=== PATIENT | female | born 1990 | race Caucasian/White ===

== ENCOUNTER 2018-07-05 19:00 | Outpatient (REF) | payer BC, SELFPAY ==
[2018-07-05 19:35] LABS: Anion Gap 9.5 mmol/L (3-11); BUN 14 mg/dL (7-18); CO2 29.5 mmol/L (21.0-32.0); CREATININE 0.61 mg/dL (0.55-1.02); Calcium 9.3 mg/dL (8.5-10.1); Chloride 101 mmol/L (98-107); Glucose 86 mg/dL (70-100); Potassium 4.7 mmol/L (3.5-5.1); Sodium 140 mmol/L (136-145)
== END 2018-07-05 19:20 ==
LOC: NCHCN 19:00
PROVIDERS: PCP Nurse Practitioner Family; Visit Provider Nurse Practitioner Family
DX: I10 Essential (primary) hypertension (principal); N92.6 Irregular menstruation, unspecified
CPT/HCPCS: 80048

== ENCOUNTER 2019-03-09 21:23 | Outpatient (REF) | payer BC, SELFPAY ==
[2019-03-09 18:18] LABS: HCT 35.2 % (36.0-46.0); HGB 10.8 g/dL (12.0-15.5); Mean Corp. HGB Concentration 30.7 g/dL (32.0-36.0); Mean Corpuscular Hemoglobin 22.8 pg (27.0-33.0); Mean Corpuscular Volume 74.4 fL (80-95); Mean Platelet Volume 10.5 fL (8.0-11.0); Platelet Count 395 x1000/uL (130-400); RBC 4.73 m/cumm (4.00-5.20); RBC Distribution Width 16.8 % (11.7-14.6); White Blood Cell Count 12.18 k/cumm (4.4-10.8)
[2019-03-09 18:32] LABS: ALT 40 U/L (14-59); AST 19 U/L (15-37); Albumin 3.5 g/dL (3.4-5.0); Alkaline Phosphatase 113 U/L (46-116); BUN 17 mg/dL (7-18); Bilirubin, Total 0.2 mg/dL (0.2-1.0); CREATININE 0.71 mg/dL (0.55-1.02); Calcium 8.8 mg/dL (8.5-10.1); Chloride 101 mmol/L (98-107); Glucose 94 mg/dL (70-100); Potassium 3.7 mmol/L (3.5-5.1); Sodium 138 mmol/L (136-145); TSH (W/Ref FT4) 1.51 uIU/mL (0.36-3.74); Total Protein 8.5 g/dL (6.4-8.2)
[2019-03-09 19:32] LABS: Hemoglobin A1C 5.9 % (4.5-6.2)
== END 2019-03-09 21:43 ==
LOC: NCHCN 21:23
PROVIDERS: PCP Nurse Practitioner Family; Visit Provider Nurse Practitioner Family
DX: I10 Essential (primary) hypertension (principal); Z68.45 Body mass index [BMI] 70 or greater, adult
CPT/HCPCS: 80053; 85027; 83036; 84443

== ENCOUNTER 2019-03-24 01:31 | Outpatient (CLI) | payer BC, SELFPAY ==
--- NOTE | 2019-03-24 16:00 | NS.NUTBLAN_ITS ---
DESCRIPTION:? Ermelinda Dan presents for nutrition consult in preparation for bariatric surgery. Height:? 64 inches? Weight today: 467 pounds? ?BMI 80.2 Ermelinda states she has been overweight her entire life.?? She skips breakfast most days, but occasionally has instant breakfast.? She is very hungry by lunch and has peanut? butter and jelly sandwich and chips. She snacks on fruit in the afternoon, and crackers when she gets home.? She has meat and vegetables with?ubtter for supper.? She drinks up to 3 16 oz bottles water daily. She has cut back to diet pepsi occasionally. She reports her physical activity as working at work.? She wants to walk outside but it doesn't feel safe. INTERVENTION:? She wishes to have a meal plan as she states she needs to lose 25# before the surgery.? Outlined 3 meals a day with focus on satisfying hunger, including adequate protein and a variety of vegetables.? Reviewed a few principles of mindful eating including hunger/fullness and eating processed foods that have minimal ingredients; real food. Discussed ways to increase physical activity.? She has friends she could plan exercise with and maybe walk at the mall. PLAN:? Decrease portion; follow meal plan; try tracking food in [employer]; eat real food She will walk at least once a week. She will return in 1 month for 2nd follow up.
== END 2019-03-24 01:51 ==
PROVIDERS: PCP Nurse Practitioner Family; Visit Provider Dietitian, Registered
DX: E66.01 Morbid (severe) obesity due to excess calories (principal); Z68.45 Body mass index [BMI] 70 or greater, adult; Z71.3 Dietary counseling and surveillance
CPT/HCPCS: 97802

== ENCOUNTER 2019-12-01 01:57 | Outpatient (CLI) | payer BC, SELFPAY ==
[2019-12-01 10:36] LABS: Hemoglobin A1C 6.1 % (3.8-5.6)
[2019-12-01 10:38] LABS: Abs Immature Grans 0.07 10^3/uL (0.0-0.06); Absolute Basophil Count 0.04 10^3/uL (0.0-0.2); Absolute Eosinophil Count 0.17 10^3/uL (0.0-0.7); Absolute Lymphocyte Count 2.68 10^3/uL (1.2-3.4); Absolute Monocyte Count 0.63 10^3/uL (0.1-0.8); Basophils % 0.3; Eosinophils % 1.4; HCT 36.1 % (36.0-46.0); HGB 10.8 g/dL (11.2-15.7); Immature Grans % 0.6; Lymphocytes % 22.5; MCH 22.2 pg (27.0-33.0); MCHC 29.9 % (32.0-36.0); MCV 74.1 fL (80-95); MPV 9.9 fL (8.0-11.0); Monocytes % 5.3; Neutrophils % 69.9; Platelet Count 352 10^3/uL (130-400); RBC 4.87 10^6/uL (3.93-5.22); RDW 17.6 % (11.7-14.6); RDW-SD 46.5 fL; WBC 11.89 10^3/uL (4.4-10.8)
[2019-12-01 10:58] LABS: Absolute Neutrophil Count 8.31 10^3/uL (1.2-6.7)
[2019-12-01 11:12] LABS: Iron 24 ug/dL (50-170); Total Iron Binding Capacity 356 ug/dL (250-450); Transferrin Sat 7 % (15-50)
[2019-12-01 11:25] LABS: Anisocytosis 1+; Diff Comment RBC Morph Reviewed; Hypochromasia 1+; Microcytosis 2+
[2019-12-01 11:40] LABS: ALT 24 U/L (14-59); AST 14 U/L (15-37); Albumin 3.1 g/dL (3.4-5.0); Alkaline Phosphatase 107 U/L (46-116); Anion Gap 6.8 mmol/L (3-11); BUN 13 mg/dL (7-18); Bilirubin, Total 0.4 mg/dL (0.2-1.0); CO2 28.2 mmol/L (21.0-32.0); CREATININE 0.77 mg/dL (0.55-1.02); Calcium 8.8 mg/dL (8.5-10.1); Calculated LDL 70 mg/dL (<100); Chloride 101 mmol/L (98-107); Cholesterol 120 mg/dL (<200); Ferritin 14 ng/mL (8-252); Folate 12.1 ng/mL (8.6-20.0); Glucose 90 mg/dL (74-106); HDL Cholesterol 38 mg/dL (40-60); Potassium 4.4 mmol/L (3.5-5.1); Sodium 136 mmol/L (136-145); Total Protein 7.7 g/dL (6.4-8.2); Triglyceride 61 mg/dL (<150); Vitamin B12 421 pg/mL (193-986)
[2019-12-04 05:23] LABS: Vitamin D 25 Total 11.3 ng/ml (30-100)
[2019-12-04 10:17] LABS: Parathyroid Hormone,Intact 53 pg/mL (19-88)
[2019-12-05 11:19] LABS: Thiamine (Vitamin B1), WB 106 nmol/L (70-180)
== END 2019-12-01 02:17 ==
PROVIDERS: PCP Nurse Practitioner Family; Visit Provider Internal Medicine
DX: E66.01 Morbid (severe) obesity due to excess calories (principal); Z68.45 Body mass index [BMI] 70 or greater, adult
CPT/HCPCS: 36415; 80053; 80061; 82306; 82607; 82728; 82746; 83036; 83540; 83550; 83970; 84425; 85025

== ENCOUNTER 2019-12-21 01:36 | Outpatient (CLI) | payer BC, SELFPAY ==
[2019-12-21 12:10] LABS: Ferritin 15 ng/mL (8-252)
== END 2019-12-21 01:56 ==
PROVIDERS: PCP Nurse Practitioner Family; Visit Provider Nurse Practitioner
DX: M25.569 Pain in unspecified knee (principal)
CPT/HCPCS: 36415; 82728

== ENCOUNTER 2019-12-21 09:44 | Outpatient (REF) | payer BC, SELFPAY ==
[2019-12-26 07:08] LABS: Chlamydia Result Negative (Negative); GC Result Negative (Negative)
== END 2019-12-21 10:04 ==
LOC: NCHCN 09:44
PROVIDERS: PCP Nurse Practitioner Family; Visit Provider Nurse Practitioner Family
DX: N89.8 Other specified noninflammatory disorders of vagina (principal); R31.9 Hematuria, unspecified
CPT/HCPCS: 87491; 87591; 87480; 87510; 87660

== ENCOUNTER 2020-01-23 17:38 | Outpatient (REF) | payer BC, SELFPAY ==
[2020-01-26 19:21] LABS: Patient Race White; SARS-CoV-2 RNA Undetected (Undetected); SARS-CoV-2 Specimen Source Nasal
== END 2020-01-23 17:58 ==
LOC: NCHCN 17:38
PROVIDERS: PCP Nurse Practitioner Family; Visit Provider Nurse Practitioner Family
DX: J02.9 Acute pharyngitis, unspecified (principal); Z20.828 Contact with and (suspected) exposure to other viral communicable diseases
CPT/HCPCS: U0003

== ENCOUNTER 2020-05-06 18:14 | Outpatient (REF) | payer BC, SELFPAY ==
[2020-05-06 18:37] LABS: HCT 39.3 % (36.0-46.0); HGB 11.8 g/dL (11.2-15.7); MCH 23.9 pg (27.0-33.0); MCV 79.6 fL (80-95); MPV 10.9 fL (8.0-11.0); Platelet Count 340 10^3/uL (130-400); RBC 4.94 10^6/uL (3.93-5.22); RDW 18.1 % (11.7-14.6); RDW-SD 51.8 fL; WBC 11.18 10^3/uL (4.4-10.8)
[2020-05-06 19:11] LABS: ALT 45 U/L (14-59); AST 18 U/L (15-37); Albumin 3.4 g/dL (3.4-5.0); Alkaline Phosphatase 98 U/L (46-116); Anion Gap 8.6 mmol/L (3-11); BUN 14 mg/dL (7-18); Bilirubin, Total 0.4 mg/dL (0.2-1.0); CO2 27.4 mmol/L (21.0-32.0); CREATININE 0.81 mg/dL (0.55-1.02); Calcium 8.7 mg/dL (8.5-10.1); Chloride 103 mmol/L (98-107); Glucose 88 mg/dL (74-106); Potassium 4.2 mmol/L (3.5-5.1); Sodium 139 mmol/L (136-145)
[2020-05-06 19:16] LABS: Iron 28 ug/dL (50-170); Total Iron Binding Capacity 359 ug/dL (250-450); Transferrin Sat 8 % (15-50)
[2020-05-06 19:21] LABS: Hemoglobin A1C 5.8 % (<5.7)
[2020-05-06 19:31] LABS: Vitamin D 25 Total 8.5 ng/ml (30-100)
[2020-05-08 11:25] LABS: Hepatitis C Ab w Rflx HCV PCR Negative (Negative)
[2020-05-08 12:40] LABS: HIV-1/2 Ag & Ab Screen Negative (Negative)
== END 2020-05-06 18:34 ==
LOC: NCHCN 18:14
PROVIDERS: PCP Nurse Practitioner Family; Visit Provider Nurse Practitioner Family
DX: D50.9 Iron deficiency anemia, unspecified (principal); R73.03 Prediabetes; I10 Essential (primary) hypertension; Z68.45 Body mass index [BMI] 70 or greater, adult
CPT/HCPCS: 80053; 82306; 85027; 86803; 87389; 83036; 83540; 83550

== ENCOUNTER 2020-08-21 16:22 | Emergency (ER) | payer BC, SELFPAY ==
--- NOTE | 2020-08-21 | DI.CT_ITS ---
EXAM: CT ABDOMEN PELVIS W CLINICAL HISTORY: RT LOWER QUAD PAIN. TECHNIQUE: Imaging Protocol: Axial computed tomography images with coronal and sagittal reformatted images were created and reviewed CONTRAST MATERIAL: Intravenous: Omnipaque 100cc Oral: None COMPARISON: No exams were available for comparison FINDINGS: VISUALIZED LUNG BASES: No nodules nor pleural effusions evident. ABDOMEN: There is no ascites. LIVER: There are no focal hepatic lesions evident . GALLBLADDER/BILIARY: No obvious gallbladder pathology. CBD is not dilated. PANCREAS: No evidence of pancreatic mass nor dilatation of the pancreatic duct. SPLEEN: Spleen is not enlarged. No obvious intrasplenic lesions. Splenic and portal veins are paten t. ADRENALS: There are no significant adrenal masses. KIDNEYS:No cysts evident. No solid renal masses. No calculi nor hydronephrosis.. ABDOMINAL AORTA: Abdominal aorta is not enlarged. LYMPH NODES:There is no retroperitineal nor paraaortic adenopathy. ABDOMINAL WALL/GI: Small fat containing umbilical hernia. No bowel obstruction. PELVIS: GI: No evidence of appendicitis.No evidence of sigmoid diverticulitis. LYMPH NODES: There is no intrapelvic nor inguinal adenopathy. REPRODUCTIVE: There is a T-shaped IUD in the uterine canal. Uterus size is normal. There are no abn ormal adnexal findings. No free fluid. URINARY BLADDER: No calculi nor obvious masses evident OSSEOUS: No significant osseous lesions. IMPRESSION: 1. T-shaped IUD in the uterus which appears to be in satisfactory position. No abnormal adnexal find ings. No free fluid in the abdomen and pelvis. 2. Small fat containing umbilical hernia. No bowel loops therein. 3. I note that the preliminary [facility] report discusses possible thickening of the mid-distal small marvin l. I do not see this. If clinically indicated further study repeating CT scan with oral contrast wo uld be helpful with respect to sensitivity/specificity. RADIATION DOSE DELIVERED: 1,923.76mGy.cm Total DLP DATA REPOSITORY: All CT scans at this facility are submitted to the National Radiology Data Registry (NRDR) Dose Index Registry (DIR) with the [employer] (ACR). RADIATION OPTIMIZATION: All CT scans at this facility use at least one of these dose optimization te chniques: automated exposure control; mA and/or kV adjustment per patient size (includes targeted exa ms where dose is matched to clinical indication); or iterative reconstruction.
[2020-08-21 16:26] VITALS: BP 159/98; PULSE 101; RESP 16; TEMP 36.2; O2SAT 99
--- NOTE | 2020-08-21 17:04 | W.ED.GENAD ---
Discharge Plan Discharge Details Chief Complaint: FlankPain Primary Care Provider: Mathew Freire ED Provider: Stephan Newman Home Meds and New Rx's Prescriptions: No Action amlodipine 5 mg Tablet 5 mg PO DAILY RF: 0 ascorbic acid (vitamin C) [Vitamin C] 500 mg Tablet 500 mg PO DAILY RF: 0 hydrochlorothiazide 25 mg Tablet 25 mg PO DAILY RF: 0 metformin 500 mg Tablet Extended Release 24 Hr 500 mg PO BID RF: 0 loratadine 10 mg Tablet 10 mg PO DAILY RF: 0 cholecalciferol (vitamin D3) [Vitamin D3] 125 mcg (5,000 unit) Tablet 125 mcg PO DAILY RF: 0 Medical Decision Making Otherwise healthy 29-year-old female presents from home with onset earlier today of initially midline abdominal pain now primarily located in the right lower quadrant. It is worse with movement, ameliorated by rest. She had no vaginal discharge or bleeding, does not note any urinary changes. No fever, resting pulse is approximately 90-100. She is tender in the right lower quadrant on exam. Differential diagnosis includes appendicitis, UTI/pyelonephritis. Less likely ovarian torsion or cyst. IV access established, screening labs obtained patient referred for CT imaging. This reveals mild wall thickening in the mid to distal small bowel which may represent mild infectious or inflammatory enteritis. See formal report. Findings discussed with patient. She will observe a bland diet, she will return for fever, vomiting, or any other acute concerns. Lab Data Lab results reviewed: Yes I reviewed the patient's lab results. Labs: Laboratory Results - last 24 hr 08/21/20 08/21/20 08/21/20 16:45 17:25 17:25 WBC 14.06 H RBC 5.03 Hgb 12.9 Hct 40.7 MCV 80.9 MCH 25.6 L MCHC 31.7 L RDW 15.5 H Plt Count 361 MPV 10.5 Immature Gran % 0.4 Neutrophils % 76.3 Lymphocytes % 17.4 Monocytes % 4.6 Eosinophils % 0.9 Basophils % 0.4 Nucleated RBC % 0 Absolute Neutrophils 10.73 H Absolute Lymphocytes 2.45 Absolute Monocytes 0.65 Absolute Eosinophils 0.13 Absolute Basophils 0.06 Sodium 137 Potassium 3.3 L Chloride 100 Carbon Dioxide 26.3 Anion Gap 10.7 BUN 15 Creatinine 0.7 Estimated GFR/1.73 m2 >= 60.00 Glucose 157 H Calcium 9.0 Total Bilirubin 0.4 AST 15 ALT 36 Alkaline Phosphatase 111 Total Protein 8.8 H Albumin 3.4 Urine Color Yellow Urine Clarity Cloudy Urine pH 6.0 Ur Specific [place] >= 1.030 H Urine Protein Trace H Urine Ketones Negative Urine Blood Trace-intact H Urine Nitrite Negative Urine Bilirubin Negative Urine Urobilinogen 0.2 Ur Leukocyte Esterase Negative Urine RBC 0-2 Urine WBC 5-10 Ur Epithelial Cells Moderate Urine Crystals Moderate amorphous Urine Bacteria Many Urine Casts Negative Urine Mucus Negative Urine Other Negative Ur Culture Indicated? Yes Urine Glucose Negative HPI General Mode of arrival: ambulatory. Date/Time Provider Initiated Documentation: 08/21/20 16:43. Limitations to Documentation: no limitations. Information obtained by: patient. History of Present Illness 29 year old F presents to the emergency department with the chief complaint of Right lower abdominal pain, described as moderate, Quality is described as dull, and is localized to the abdomen and right. Patient reports radiation to back. Patient started experiencing this hour(s) and it has been constant. Rest improves symptom(s), Movement worsens symptoms . Patient notes denies fever/chills and nausea/vomiting. Patient did receive the following treatments prior to arrival, none Related Data Home Medications Medication Instructions Recorded Confirmed amlodipine 5 mg PO DAILY 08/21/20 08/21/20 ascorbic acid (vitamin C) [Vitamin 500 mg PO DAILY 08/21/20 08/21/20 C] cholecalciferol (vitamin D3) 125 mcg PO DAILY 08/21/20 08/21/20 [Vitamin D3] hydrochlorothiazide 25 mg PO DAILY 08/21/20 08/21/20 loratadine 10 mg PO DAILY 08/21/20 08/21/20 metformin 500 mg PO BID 08/21/20 08/21/20 Allergies Allergy/AdvReac Type Severity Reaction Status Date / Time No Known Allergies Allergy Verified 08/21/20 16:29 General Stated Complaint: FlankPain SULLY: 3 Review of Systems Narrative: 6 systems reviewed and otherwise negative. IUD present, no frequency of menstrual period. PFSH Social History Smoking/Tobacco Use Status: Never Smoking risk assessment performed?: Yes Alcohol Intake: current Alcohol Intake frequency: holidays/special occasions only Drug use: Never Substance use type: does not use Do you feel safe at home: Yes Do you feel safe in your relationship?: Yes Exam Narrative Exam Narrative: GEN: awake, alert, oriented 3. Pleasant, well groomed, interactive. HEAD: Normocephalic, atraumatic ENT: Mucous membranes moist, oropharynx unremarkable, External ear exam unremarkable EYES: PERRL, EOMI NECK: Full ROM, no JHON, no menigismus CHEST/RESP: Nontender, clear to auscultation bilateral, no wheeze/rhonchi/rales CARDIOVASCULAR: RRR, no murmur, rub loraine. 2+ Rad pulse bilateral ABDOMEN: Soft, right lower quadrant tenderness, no mass. +Bowel sounds EXT: Full ROM, no edema, no rash Neuro: Grossly normal neurologic exam, conversant, interactive. Psych: Speech fluent, thoughts congruent, affect normal Course Vital Signs Vital signs: Vital Signs Temperature 36.2 C L 08/21/20 16:26 Pulse 101 H 08/21/20 16:26 Respiratory Rate 16 08/21/20 16:26 Blood Pressure 159/98 H 08/21/20 16:26 Pulse Oximetry 99 08/21/20 16:26 Temperature 36.2 C L 08/21/20 16:26 Temperature Source Skin 08/21/20 16:26 Pulse 101 H 08/21/20 16:26 Respiratory Rate 16 08/21/20 16:26 Respiratory Effort 08/21/20 16:32 Blood Pressure 159/98 H 08/21/20 16:26 Blood Pressure Position Sitting 08/21/20 16:26 Pulse Oximetry 99 08/21/20 16:26 Oxygen Delivery Method Room Air 08/21/20 16:26 Oxygen Flow Rate 0 08/21/20 16:26 Pain Level 6 08/21/20 16:26
[2020-08-21 17:13] LABS: Bilirubin Negative (Negative); Blood Trace-intact (Negative); Clarity Cloudy (Clear); Glucose Negative (Negative); Ketones Negative (Negative); Leukocyte Esterase Negative (Negative); Nitrite Negative (Negative); Specific Gravity >= 1.030 (1.005-1.025); Urobilinogen 0.2 EU/dL (Up TO 0.2)
[2020-08-21 17:24] LABS: Bacteria Many HPF (Negative); Epithelial Cells Moderate HPF (Negative); Other Cells Negative (Negative); RBC 0-2 HPF (0-2)
[2020-08-21 17:25] LABS: C & S Indicated? Yes; Casts Negative LPF (Negative); Crystals Moderate Amorphous HPF (Negative); Mucus Negative (Negative)
[2020-08-21 17:34] LABS: Abs Immature Grans 0.06 10^3/uL (0.0-0.06); Absolute Lymphocyte Count 2.45 10^3/uL (1.2-3.4); Absolute Monocyte Count 0.65 10^3/uL (0.1-0.8); Absolute Neutrophil Count 10.73 10^3/uL (1.2-6.7); Basophils % 0.4; Eosinophils % 0.9; HCT 40.7 % (36.0-46.0); HGB 12.9 g/dL (11.2-15.7); Immature Grans % 0.4; Lymphocytes % 17.4; MCH 25.6 pg (27.0-33.0); MCHC 31.7 % (32.0-36.0); MCV 80.9 fL (80-95); MPV 10.5 fL (8.0-11.0); Monocytes % 4.6; Neutrophils % 76.3; Nucleated RBC 0 %; Platelet Count 361 10^3/uL (130-400); RBC 5.03 10^6/uL (3.93-5.22); RDW 15.5 % (11.7-14.6); RDW-SD 45.6 fL; WBC 14.06 10^3/uL (4.4-10.8)
[2020-08-21 17:41] LABS: Absolute Basophil Count 0.06 10^3/uL (0.0-0.2); Absolute Eosinophil Count 0.13 10^3/uL (0.0-0.7)
[2020-08-21] MEDS: Normal Saline 1,000 ML 150 ML IV (17:49)
[2020-08-21 17:58] LABS: ALT 36 U/L (14-59); AST 15 U/L (15-37); Albumin 3.4 g/dL (3.4-5.0); Alkaline Phosphatase 111 U/L (46-116); Anion Gap 10.7 mmol/L (3-11); BUN 15 mg/dL (7-18); Bilirubin, Total 0.4 mg/dL (0.2-1.0); CO2 26.3 mmol/L (21.0-32.0); CREATININE 0.7 mg/dL (0.55-1.02); Chloride 100 mmol/L (98-107); Glucose 157 mg/dL (74-106); Potassium 3.3 mmol/L (3.5-5.1); Sodium 137 mmol/L (136-145); Total Protein 8.8 g/dL (6.4-8.2)
[2020-08-21] MEDS: Normal Saline - Diluent 50 ML VIAL IV ×2 (18:06→19:24)
[2020-08-21] MEDS: Normal Saline Flush 10 ML SYR IVP (18:07)
[2020-08-21 19:30] VITALS: BP 144/80; PULSE 82; RESP 16; O2SAT 99
--- NOTE | 2020-08-21 19:50 | DI.VRAD_ITS ---
PROCEDURE INFORMATION: Exam: CT Abdomen And Pelvis With Contrast Exam date and time: 08/21/2020 7:13 PM Age: 29 years old Clinical indication: Other: RT lower quad pain TECHNIQUE: Imaging protocol: Computed tomography of the abdomen and pelvis with contrast. Radiation optimization: All CT scans at this facility use at least one of these dose optimization techniques: automated exposure control; mA and/or kV adjustment per patient size (includes targeted exams where dose is matched to clinical indication); or iterative reconstruction. Contrast material: VIIPAQUE 320; Contrast volume: 100 ml; Contrast route: INTRAVENOUS (IV); COMPARISON: CT ABDOMEN PELVIS W 08/21/2020 6:09 PM FINDINGS: Lungs: The lung bases are clear. Pleural spaces: No pleural effusion. Heart: The heart is normal in size. No pericardial effusion. Mediastinal space: Minimal wall thickening within the distal esophagus. Tiny hiatal hernia. Liver: The liver is mildly enlarged and mildly fatty infiltrated and has a slightly lobulated contour. Gallbladder and bile ducts: Normal. No calcified stones. No ductal dilation. Pancreas: Normal. No ductal dilation. Spleen: The spleen is upper limits of normal in size. Adrenal glands: Normal. No mass. Kidneys and ureters: The the bilateral kidneys are normal appearance. No hydronephrosis. Stomach and bowel: Possible mild wall thickening within the gastric folds. Possible mild wall thickening within the mid and distal small bowel. The small bowel is nondistended. The colon is normal appearance. No bowel obstruction. Appendix: The appendix is normal in appearance. Intraperitoneal space: No free fluid, free air or abscess. Vasculature: Unremarkable. No abdominal aortic aneurysm. Lymph nodes: Unremarkable. No enlarged lymph nodes. Urinary bladder: The urinary bladder is normal appearance. Reproductive: An IUD is seen within the endometrial canal. No adnexal mass. Bones/joints: Mild degenerative changes throughout the lumbar spine. No acute compression fracture. Soft tissues: A tiny fat containing umbilical hernia is seen. IMPRESSION: 1. Possible mild wall thickening within the mid and distal small bowel which may represent a mild form of an infectious or inflammatory enteritis. No bowel obstruction or perforation. 2. Probable mild gastroesophagitis. Tiny hiatal hernia. 3. Tiny fat containing umbilical hernia. 4. Mildly enlarged, fatty infiltrated liver. 5. IUD. Dictated and Authenticated by: Madalyn Hester MD. Ordering:JARRET Rothman MD
[2020-08-21 20:08] VITALS: BP 144/80; PULSE 82; RESP 16; TEMP 36.2; O2SAT 99
== END 2020-08-21 20:12 | disposition home or self-care (01) ==
PROVIDERS: Emergency Provider Emergency Medicine; PCP Nurse Practitioner Family
DX: K52.9 Noninfective gastroenteritis and colitis, unspecified (principal); R10.31 Right lower quadrant pain
CPT/HCPCS: 36415; 80053; 96360; 96361; 99285; 74177; 81003; 81015; 85025; 87086; 99284

== ENCOUNTER 2020-08-22 03:52 | Outpatient (CLI) | payer BC, SELFPAY ==
[2020-08-22 08:06] LABS: Abs Immature Grans 0.04 10^3/uL (0.0-0.06); Absolute Basophil Count 0.05 10^3/uL (0.0-0.2); Absolute Eosinophil Count 0.09 10^3/uL (0.0-0.7); Absolute Lymphocyte Count 2.24 10^3/uL (1.2-3.4); Absolute Monocyte Count 0.55 10^3/uL (0.1-0.8); Absolute Neutrophil Count 7.51 10^3/uL (1.2-6.7); Basophils % 0.5; Eosinophils % 0.9; HCT 40.7 % (36.0-46.0); HGB 12.6 g/dL (11.2-15.7); Immature Grans % 0.4; Lymphocytes % 21.4; MCH 25.8 pg (27.0-33.0); MCV 83.4 fL (80-95); MPV 10.6 fL (8.0-11.0); Monocytes % 5.2; Neutrophils % 71.6; Nucleated RBC 0 %; Platelet Count 293 10^3/uL (130-400); RBC 4.88 10^6/uL (3.93-5.22); RDW 15.8 % (11.7-14.6); WBC 10.48 10^3/uL (4.4-10.8)
[2020-08-22 08:25] LABS: Hemoglobin A1C 5.7 % (<5.7)
[2020-08-22 09:00] LABS: Iron 55 ug/dL (50-170); Total Iron Binding Capacity 290 ug/dL (250-450); Transferrin Sat 19 % (15-50)
[2020-08-22 09:18] LABS: Vitamin D 25 Total 9.6 ng/mL (30-100)
[2020-08-22 09:20] LABS: ALT 35 U/L (14-59); AST 18 U/L (15-37); Albumin 3.1 g/dL (3.4-5.0); Alkaline Phosphatase 103 U/L (46-116); BUN 13 mg/dL (7-18); Bilirubin, Total 0.5 mg/dL (0.2-1.0); CREATININE 0.7 mg/dL (0.55-1.02); Calcium 8.7 mg/dL (8.5-10.1); Calculated LDL 62 mg/dL (<100); Chloride 107 mmol/L (98-107); Cholesterol 115 mg/dL (<200); Ferritin 50 ng/mL (8-252); Folate 13.2 ng/mL (8.6-20.0); Glucose 96 mg/dL (74-106); HDL Cholesterol 41 mg/dL (40-60); Potassium 3.9 mmol/L (3.5-5.1); Sodium 144 mmol/L (136-145); TSH 1.13 uIU/mL (0.36-3.74); Total Protein 7.5 g/dL (6.4-8.2); Triglyceride 61 mg/dL (<150); Vitamin B12 458 pg/mL (193-986)
[2020-08-23 09:00] LABS: Parathyroid Hormone,Intact 47 pg/mL (19-88)
[2020-08-24 09:53] LABS: Thiamine (Vitamin B1), WB 119 nmol/L (70-180)
== END 2020-08-22 03:53 | disposition home or self-care (01) ==
LOC: LBO 03:52
PROVIDERS: PCP Nurse Practitioner Family; Visit Provider Internal Medicine
DX: E66.01 Morbid (severe) obesity due to excess calories (principal); Z68.44 Body mass index [BMI] 60.0-69.9, adult
CPT/HCPCS: 36415; 80053; 80061; 82306; 82607; 82728; 82746; 83036; 83540; 83550; 83970; 84425; 84443; 85025

== ENCOUNTER 2020-12-27 19:05 | Emergency (ER) | payer BC, SELFPAY ==
[2020-12-27] VITALS (18 sets, daily range): BP systolic 121–148; BP diastolic 65–99; PULSE 72–103; RESP 20; TEMP 36.7; O2SAT 97–100
--- NOTE | 2020-12-27 19:15 | DI.CT_ITS ---
Exam(s) CT ABDOMEN PELVIS W EXAM: CT ABDOMEN PELVIS W CLINICAL HISTORY: cellulitis, concern for abscess TECHNIQUE: Imaging Protocol: Axial computed tomography images with coronal and sagittal reformatted images were created and reviewed CONTRAST MATERIAL: Intravenous: Omnipaque 350 Contrast volume:100 mL Oral: No COMPARISON: CT CT ABDOMEN PELVIS W from 08/21/2020 FINDINGS: ABDOMEN: Lung Bases: Normal where visualized. Liver: Normal density. No measurable mass. Portal, Superior Mesenteric, and Splenic Veins: Unremarkable. Gallbladder and Biliary Tract: No radiodense calculus or dilation. Pancreas: Normal density, no abnormal calcifications or inflammatory process. Spleen: Normal. Adrenals: No masses seen. Kidneys: Normal size, contour and axis. No radiodense stones or obstructive uropathy. No masses seen. Abdominal Aorta: Abdominal portion non-dilated. Bowel: No obstruction or bowel wall thickening. No evidence of appendicitis. Peritoneal Cavity: No ascites, collection or mesenteric inflammatory response. No free air. Lymph Nodes: Within normal limits. Bones: Within normal limits for the patient's age. Soft Tissues: No evidence of a soft tissue abscess. PELVIS: Bladder: There is incomplete distension of the urinary bladder limiting evaluation. No gross abnorma lity. Reproductive Organs: There is an IUD in good position. Lymph Nodes: Within normal limits. Bones: Within normal limits for the patient's age. IMPRESSION: 1. No acute abdominal pelvic process. 2. No evidence of a subcutaneous abscess. RADIATION DOSE DELIVERED: 3,804.98mGy.cm Total DLP DATA REPOSITORY: All CT scans at this facility are submitted to the National Radiology Data Registry (NRDR) Dose Index Registry (DIR) with the [employer] (A[employer]). RADIATION OPTIMIZATION: All CT scans at this facility use at least one of these dose optimization te chniques: automated exposure control; mA and/or kV adjustment per patient size (includes targeted exa ms where dose is matched to clinical indication); or iterative reconstruction.
[2020-12-27 20:00] LABS: Abs Immature Grans 0.05 10^3/uL (0.0-0.06); Absolute Basophil Count 0.07 10^3/uL (0.0-0.2); Absolute Lymphocyte Count 3.26 10^3/uL (1.2-3.4); Absolute Monocyte Count 0.64 10^3/uL (0.1-0.8); Absolute Neutrophil Count 7.94 10^3/uL (1.2-6.7); Basophils % 0.6; Eosinophils % 1.6; HCT 41.4 % (36.0-46.0); Immature Grans % 0.4; Lymphocytes % 26.8; MCH 26.1 pg (27.0-33.0); MCHC 31.4 % (32.0-36.0); MCV 83.1 fL (80-95); MPV 10.1 fL (8.0-11.0); Monocytes % 5.3; Neutrophils % 65.3; Nucleated RBC 0 %; Platelet Count 348 10^3/uL (130-400); RBC 4.98 10^6/uL (3.93-5.22); RDW 14.6 % (11.7-14.6); RDW-SD 44.2 fL; WBC 12.16 10^3/uL (4.4-10.8)
[2020-12-27 20:03] LABS: Absolute Eosinophil Count 0.19 10^3/uL (0.0-0.7)
--- NOTE | 2020-12-27 20:07 | W.ED.GENAD ---
Discharge Plan Disposition Patient Disposition: HOME Condition: Stable Discharge Details Clinical Impression: Cellulitis Primary Care Provider: Unknown,Unknown ED Provider: Jeb Jones Home Meds and New Rx's Prescriptions: New sulfamethoxazole-trimethoprim [Bactrim DS] 800-160 mg tablet 1 tab PO BID Qty: 20 RF: 0 Continued amlodipine 5 mg Tablet 5 mg PO DAILY RF: 0 ascorbic acid (vitamin C) [Vitamin C] 500 mg Tablet 500 mg PO DAILY RF: 0 hydrochlorothiazide 25 mg Tablet 25 mg PO DAILY RF: 0 metformin 500 mg Tablet Extended Release 24 Hr 500 mg PO BID RF: 0 loratadine 10 mg Tablet 10 mg PO DAILY RF: 0 cholecalciferol (vitamin D3) [Vitamin D3] 125 mcg (5,000 unit) Tablet 125 mcg PO DAILY RF: 0 phentermine 15 mg capsule 15 mg PO QAM RF: 0 ergocalciferol (vitamin D2) 1,250 mcg (50,000 unit) capsule 1,250 mcg PO Q2W RF: 0 ferrous gluconate 324 mg (38 mg iron) tablet 324 mg PO DAILY RF: 0 Discharge Instructions Instructions: Cellulitis (ED) Additional Instructions: Bactrim as directed. [id number] Tylenol and/or Motrin as directed for discomfort. Warm compresses every 2 hours for 20 minutes. Please watch for new or worsening symptoms and return to the ER for any concerns. Lastly, I do recommend reaching out your primary care provider for wound reevaluation in the next 2-3 days. Discharge Data Discharge Date/Time-TO BE ENTERED AT DEPARTURE: 12/27/20 22:25 Medical Decision Making 30-year-old female, past medical history of hypertension, morbid obesity, diabetes, presents to the ER for an evaluation of infection across her abdomen. There is a clear wound that has surrounding erythema, what appears to be cellulitis. Given the drainage coming from her umbilicus, and her body habitus, examination is difficult, and concern for potential deeper abscess or tunneling infection. Given this will obtain IV access, routine laboratory values and CT imaging of her abdomen and pelvis with contrast Laboratory values reveal mild nonspecific leukocytosis CT imaging unremarkable per radiology Will obtain wound culture from the drainage from her umbilicus and then provide her her first dose of Bactrim, will provide a 10-day prescription of Bactrim DS twice daily. Patient agreeable to this plan and has no additional questions or concerns. Standard discharge and return precautions given This documentation was generated using [employer] system, please disregard any oddities of phrase or misspellings. Medical Records Medical records reviewed: Yes I reviewed the patient's medical records. Imaging Data Radiologic Study: Attestation: I personally reviewed and interpreted this imaging study as follows: Imaging: CT Scan Radiologist's impression: PROCEDURE INFORMATION: Exam: CT Abdomen And Pelvis With Contrast Exam date and time: 12/27/2020 7:29 PM Age: 30 years old Clinical indication: Other: Cellulitis, concern for abscess TECHNIQUE: Imaging protocol: Computed tomography of the abdomen and pelvis with contrast. Radiation optimization: All CT scans at this facility use at least one of these dose optimization techniques: automated exposure control; mA and/or kV adjustment per patient size (includes targeted exams where dose is matched to clinical indication); or iterative reconstruction. Contrast material: OMNIPAQUE 350; Contrast volume: 100 ml; Contrast route: INTRAVENOUS (IV); COMPARISON: CT ABDOMEN PELVIS W 08/21/2020 7:16 PM FINDINGS: Liver: Normal. No mass. Gallbladder and bile ducts: Gallbladder partially contracted. Pancreas: Normal. No ductal dilation. Spleen: Normal. No splenomegaly. Adrenal glands: Normal. No mass. Kidneys and ureters: Normal. No hydronephrosis. Stomach and bowel: Unremarkable. No obstruction. No mucosal thickening. Appendix: No evidence of appendicitis. Intraperitoneal space: Unremarkable. No free air. No significant fluid collection. Vasculature: Unremarkable. No abdominal aortic aneurysm. Lymph nodes: Unremarkable. No enlarged lymph nodes. Urinary bladder: The bladder is not well distended. Reproductive: IUD in place. UZAIR HYMAN Preliminary Radiology Report SUPERVISOR POLICY CHANGE CLERKS (QA) DISCREPANCY? If there is a discrepancy between the preliminary and final interpretation, please notify [facility] via [email or web address]. If you do not have access to our QA portal, call our QA team at [phone] CONFIDENTIALITY STATEMENT This report is intended only for the use of the referring physician, and only in accordance with law, If you received this in error, call [phone] Page 2 of 2 Bones/joints: Unremarkable. No acute fracture. Soft tissues: Unremarkable. Other findings: Respiratory motion noted. IMPRESSION: No evidence for abscess Lab Data Lab results reviewed: Yes I reviewed the patient's lab results. Labs: 12/27/20 22:24 Abdomen Wound Culture - Pending 12/27/20 22:24 Abdomen Gram Stain - Final Laboratory Tests Range/Units 12/27/20 12/27/20 12/27/20 19:40 19:40 19:55 WBC (4.4-10.8) 10^3/uL 12.16 H RBC (3.93-5.22) 10^6/uL 4.98 Hgb (11.2-15.7) g/dL 13.0 Hct (36.0-46.0) % 41.4 MCV (80-95) fL 83.1 MCH (27.0-33.0) pg 26.1 L MCHC (32.0-36.0) % 31.4 L RDW (11.7-14.6) % 14.6 Plt Count (130-400) 10^3/uL 348 MPV (8.0-11.0) fL 10.1 Immature Gran % 0.4 Neutrophils % 65.3 Lymphocytes % 26.8 Monocytes % 5.3 Eosinophils % 1.6 Basophils % 0.6 Nucleated RBC % % 0 Absolute Neutrophils (1.2-6.7) 10^3/uL 7.94 H Absolute Lymphocytes (1.2-3.4) 10^3/uL 3.26 Absolute Monocytes (0.1-0.8) 10^3/uL 0.64 Absolute Eosinophils (0.0-0.7) 10^3/uL 0.19 Absolute Basophils (0.0-0.2) 10^3/uL 0.07 Sodium (136-145) mmol/L 139 Potassium (3.5-5.1) mmol/L 3.5 Chloride (98-107) mmol/L 103 Carbon Dioxide (21.0-32.0) mmol/L 29.3 Anion Gap (3-11) mmol/L 6.7 BUN (7-18) mg/dL 12 Creatinine (0.55-1.02) mg/dL 0.9 Estimated GFR/1.73 m2 (mL/min/1.73m2) >= 60.00 Glucose (74-106) mg/dL 107 H Calcium (8.5-10.1) mg/dL 8.8 Total Bilirubin (0.2-1.0) mg/dL 0.3 AST (15-37) U/L 19 ALT (14-59) U/L 38 Alkaline Phosphatase (46-116) U/L 112 Total Protein (6.4-8.2) g/dL 8.9 H Albumin (3.4-5.0) g/dL 3.3 L Urine Color (Yellow) Yellow Urine Clarity (Clear) Cloudy Urine pH (5-8) 5.5 Ur Specific Mcg[place] (1.005-1.025) >= 1.030 H Urine Protein (Negative) mg/dL Negative Urine Ketones (Negative) mg/dL Negative Urine Blood (Negative) Negative Urine Nitrite (Negative) Negative Urine Bilirubin (Negative) Negative Urine Urobilinogen (Up TO 0.2) EU/dL 0.2 Ur Leukocyte Esterase (Negative) Negative Urine Glucose (Negative) mg/dL Negative HPI General Mode of arrival: ambulatory. Date/Time Provider Initiated Documentation: 12/27/20 19:28. Limitations to Documentation: no limitations. Information obtained by: patient. HPI Narrative: This is a 30-year-old female, past medical history of hypertension, diabetes, presents to the ER for evaluation of abdominal infection. Patient states approximately 2 weeks ago she had a small wound or blister on her left abdomen, it subsequently popped and now is painful and red. Over the past day or so she has noticed some drainage coming from her umbilicus, brown, bloody. She reports it smells foul and she reports diffuse mild discomfort around the area. She denies any fever, nausea, vomiting, diarrhea, constipation, dysuria, skin rash elsewhere on her body. She has not taken any [id number] medication for her symptoms. Related Data Home Medications Medication Instructions Recorded Confirmed amlodipine 5 mg PO DAILY 08/21/20 12/27/20 ascorbic acid (vitamin C) [Vitamin 500 mg PO DAILY 08/21/20 12/27/20 C] cholecalciferol (vitamin D3) 125 mcg PO DAILY 08/21/20 12/27/20 [Vitamin D3] hydrochlorothiazide 25 mg PO DAILY 08/21/20 12/27/20 loratadine 10 mg PO DAILY 08/21/20 12/27/20 metformin 500 mg PO BID 08/21/20 12/27/20 ergocalciferol (vitamin D2) 1,250 mcg PO Q2W 12/27/20 12/27/20 ferrous gluconate 324 mg PO DAILY 12/27/20 12/27/20 phentermine 15 mg PO QAM 12/27/20 12/27/20 sulfamethoxazole-trimethoprim 1 tab PO BID #20 tab 12/27/20 [Bactrim DS] Previous Rx's Medication Instructions Recorded sulfamethoxazole-trimethoprim 1 tab PO BID #20 tab 12/27/20 [Bactrim DS] Allergies Allergy/AdvReac Type Severity Reaction Status Date / Time No Known Allergies Allergy Verified 12/27/20 19:16 General Stated Complaint: RashLesion SULLY: 3 Review of Systems Constitutional Constitutional: Denies fever(s) Gastrointestinal Gastrointestinal: Reports abdominal pain, Denies constipation, Denies diarrhea, Denies nausea and Denies vomiting Genitourinary Genitourinary: Denies dysuria Integumentary/Breasts Skin/Breast: Reports erythema PFSH Social History Smoking/Tobacco Use Status: Never Smoking risk assessment performed?: Yes Alcohol Intake: current Alcohol Intake frequency: holidays/special occasions only Drug use: Never Substance use type: does not use Do you feel safe at home: Yes Do you feel safe in your relationship?: Yes Exam Const General: cooperative, healthy appearing, comfortable and no acute distress Orientation: alert and awake [facility] Head: normal to inspection, normocephalic and atraumatic Eyes General: appearance normal, both eyes and all related structures Conjunctivae: conjunctivae normal Neck Neck: normal visual inspection, trachea midline and supple Resp Effort & Inspection: normal respiratory effort and able to speak in complete sentences Cardio Rate: regular rate Rhythm: regular rhythm GI Inspection: large pannus and obesity Palpation: soft, not firm, no guarding, no pulsatile masses and tender Auscultation: normal bowel sounds Abdomen image: 1. There is a nickel sized open wound with surrounding erythema in all directions approximately 2 cm. There is warmth, tenderness, no active drainage, induration or fluctuance. There is mild discomfort that extends to her umbilicus but there is no additional erythema. In her umbilicus and just inferior to her umbilicus is a crusted brown-red drainage. I do not see any obvious break in the skin. Skin General skin exam: erythema Neuro General: patient alert, patient awake, moves all extremities and no focal motor deficits Cognition: normal cognition Speech: speech normal Sensory Exam: no sensory deficits noted Psych Appearance: grossly normal Mental Status: mental status grossly normal Course Vital Signs Vital signs: Vital Signs Temperature 36.7 C 12/27/20 19:11 Pulse 103 H 12/27/20 19:11 Respiratory Rate 20 12/27/20 19:11 Blood Pressure 132/99 H 12/27/20 19:11 Pulse Oximetry 98 12/27/20 19:11 Temperature 36.7 C 12/27/20 19:11 Temperature Source Skin 12/27/20 19:11 Pulse 103 H 12/27/20 19:11 Respiratory Rate 20 12/27/20 19:11 Respiratory Effort Non-Labored 12/27/20 20:03 Blood Pressure 132/99 H 12/27/20 19:11 Blood Pressure Position Sitting 12/27/20 19:11 Pulse Oximetry 98 12/27/20 19:11 Oxygen Delivery Method Room Air 12/27/20 19:11 Oxygen Flow Rate 0 12/27/20 19:11 Pain Level 0 12/27/20 19:11 Lab/Test Results Lab/Test Results: Laboratory Tests Range/Units 12/27/20 19:40 WBC (4.4-10.8) 10^3/uL 12.16 H RBC (3.93-5.22) 10^6/uL 4.98 Hgb (11.2-15.7) g/dL 13.0 Hct (36.0-46.0) % 41.4 MCV (80-95) fL 83.1 MCH (27.0-33.0) pg 26.1 L MCHC (32.0-36.0) % 31.4 L RDW (11.7-14.6) % 14.6 Plt Count (130-400) 10^3/uL 348 MPV (8.0-11.0) fL 10.1 Immature Gran % 0.4 Neutrophils % 65.3 Lymphocytes % 26.8 Monocytes % 5.3 Eosinophils % 1.6 Basophils % 0.6 Nucleated RBC % % 0 Absolute Neutrophils (1.2-6.7) 10^3/uL 7.94 H Absolute Lymphocytes (1.2-3.4) 10^3/uL 3.26 Absolute Monocytes (0.1-0.8) 10^3/uL 0.64 Absolute Eosinophils (0.0-0.7) 10^3/uL 0.19 Absolute Basophils (0.0-0.2) 10^3/uL 0.07 POC- Test(urine) Negative
[2020-12-27 20:08] LABS: Bilirubin Negative (Negative); Blood Negative (Negative); Clarity Cloudy (Clear); Glucose Negative (Negative); Ketones Negative (Negative); Leukocyte Esterase Negative (Negative); Nitrite Negative (Negative); Specific Gravity >= 1.030 (1.005-1.025); Urobilinogen 0.2 EU/dL (Up TO 0.2); pH 5.5 (5-8)
[2020-12-27 20:14] LABS: ALT 38 U/L (14-59); AST 19 U/L (15-37); Albumin 3.3 g/dL (3.4-5.0); Alkaline Phosphatase 112 U/L (46-116); Anion Gap 6.7 mmol/L (3-11); BUN 12 mg/dL (7-18); Bilirubin, Total 0.3 mg/dL (0.2-1.0); CO2 29.3 mmol/L (21.0-32.0); CREATININE 0.9 mg/dL (0.55-1.02); Calcium 8.8 mg/dL (8.5-10.1); Chloride 103 mmol/L (98-107); Glucose 107 mg/dL (74-106); Potassium 3.5 mmol/L (3.5-5.1); Sodium 139 mmol/L (136-145); Total Protein 8.9 g/dL (6.4-8.2)
[2020-12-27] MEDS: Omnipaque 350 MG/ML 100 ML BTL IJ (20:38)
[2020-12-27] MEDS: Normal Saline Flush 10 ML SYR IVP (20:57)
--- NOTE | 2020-12-27 21:34 | DI.[facility]AD_ITS ---
PROCEDURE INFORMATION: Exam: CT Abdomen And Pelvis With Contrast Exam date and time: 12/27/2020 7:29 PM Age: 30 years old Clinical indication: Other: Cellulitis, concern for abscess TECHNIQUE: Imaging protocol: Computed tomography of the abdomen and pelvis with contrast. Radiation optimization: All CT scans at this facility use at least one of these dose optimization techniques: automated exposure control; mA and/or kV adjustment per patient size (includes targeted exams where dose is matched to clinical indication); or iterative reconstruction. Contrast material: OMNIPAQUE 350; Contrast volume: 100 ml; Contrast route: INTRAVENOUS (IV); COMPARISON: CT ABDOMEN PELVIS W 08/21/2020 7:16 PM FINDINGS: Liver: Normal. No mass. Gallbladder and bile ducts: Gallbladder partially contracted. Pancreas: Normal. No ductal dilation. Spleen: Normal. No splenomegaly. Adrenal glands: Normal. No mass. Kidneys and ureters: Normal. No hydronephrosis. Stomach and bowel: Unremarkable. No obstruction. No mucosal thickening. Appendix: No evidence of appendicitis. Intraperitoneal space: Unremarkable. No free air. No significant fluid collection. Vasculature: Unremarkable. No abdominal aortic aneurysm. Lymph nodes: Unremarkable. No enlarged lymph nodes. Urinary bladder: The bladder is not well distended. Reproductive: IUD in place. Bones/joints: Unremarkable. No acute fracture. Soft tissues: Unremarkable. Other findings: Respiratory motion noted. IMPRESSION: No evidence for abscess. Dictated and Authenticated by: Adrienne Dee MD. Ordering:ANNEMARIE Russ MD
[2020-12-27] MEDS: Sulfameth/Trimeth DS TAB 1 TAB PO (22:21)
== END 2020-12-27 22:25 | disposition home or self-care (01) ==
PROVIDERS: Emergency Provider Physician Assistant
DX: L03.319 Cellulitis of trunk, unspecified (principal); B96.89 Other specified bacterial agents as the cause of diseases classified elsewhere
CPT/HCPCS: 80053; 81025; 99285; 74177; 81003; 85025; 87070; 87205; 99283; J3490

== ENCOUNTER 2021-05-06 19:54 | Outpatient (REF) | payer BC, SELFPAY | END 2021-05-06 19:55 | disposition home or self-care (01) | LOC: LBN 19:54 | PROVIDERS: Visit Provider Nurse Practitioner Family | DX: R39.89 Other symptoms and signs involving the genitourinary system (principal) | CPT/HCPCS: 87086; 87480; 87510; 87660 ==

== ENCOUNTER 2021-09-22 18:34 | Outpatient (REF) | payer BC, SELFPAY | END 2021-09-22 18:35 | disposition home or self-care (01) | LOC: NCHCN 18:34 | PROVIDERS: Visit Provider Physician Assistant | CPT/HCPCS: 80048 ==

== ENCOUNTER 2021-10-22 02:06 | Outpatient (CLI) | payer BC, SELFPAY ==
[2021-10-22 08:10] LABS: Abs Immature Grans 0.04 10^3/uL (0.0-0.06); Absolute Basophil Count 0.05 10^3/uL (0.0-0.2); Absolute Eosinophil Count 0.22 10^3/uL (0.0-0.7); Absolute Lymphocyte Count 2.61 10^3/uL (1.2-3.4); Absolute Monocyte Count 0.56 10^3/uL (0.1-0.8); Basophils % 0.4; Eosinophils % 1.9; HCT 42.7 % (36.0-46.0); HGB 13.5 g/dL (11.2-15.7); Immature Grans % 0.3; Lymphocytes % 22.5; MCH 27.1 pg (27.0-33.0); MCHC 31.6 % (32.0-36.0); MCV 86 fL (80-95); Monocytes % 4.8; Neutrophils % 70.1; Platelet Count 277 10^3/uL (130-400); RBC 4.99 10^6/uL (3.93-5.22); RDW 14.5 % (11.7-14.6); WBC 11.58 10^3/uL (4.4-10.8)
[2021-10-22 08:14] LABS: Absolute Neutrophil Count 8.12 10^3/uL (1.2-6.7)
[2021-10-22 09:09] LABS: ALT 27 U/L (14-59); AST 15 U/L (15-37); Alkaline Phosphatase 110 U/L (46-116); Anion Gap 7.2 mmol/L (3-11); BUN 15 mg/dL (7-18); Bilirubin, Total 0.4 mg/dL (0.2-1.0); CO2 30.8 mmol/L (21.0-32.0); CREATININE 0.6 mg/dL (0.55-1.02); Calcium 8.6 mg/dL (8.5-10.1); Calculated LDL 68 mg/dL (<100); Chloride 100 mmol/L (98-107); Cholesterol 128 mg/dL (<200); Folate 8.7 ng/mL (8.6-20.0); Glucose 115 mg/dL (74-106); HDL Cholesterol 46 mg/dL (40-60); Sodium 138 mmol/L (136-145); TSH 1.72 uIU/mL (0.36-3.74); Total Protein 8.4 g/dL (6.4-8.2); Triglyceride 72 mg/dL (<150); Vitamin B12 393 pg/mL (193-986)
[2021-10-23 09:36] LABS: Parathyroid Hormone,Intact 59 pg/mL (19-88)
[2021-10-25 14:36] LABS: Thiamine (Vitamin B1), WB 118 nmol/L (70-180)
== END 2021-10-22 02:07 | disposition home or self-care (01) ==
LOC: LBO 02:06
PROVIDERS: Internal Medicine; Visit Provider Physician Assistant
DX: E66.01 Morbid (severe) obesity due to excess calories (principal); Z68.44 Body mass index [BMI] 60.0-69.9, adult
CPT/HCPCS: 36415; 80053; 80061; 82306; 82607; 82746; 83970; 84425; 84443; 85025

== ENCOUNTER 2021-12-03 03:02 | Outpatient (CLI) | payer SELFPAY ==
[2021-12-03 07:56] LABS: Abs Immature Grans 0.05 10^3/uL (0.0-0.06); Absolute Basophil Count 0.05 10^3/uL (0.0-0.2); Absolute Eosinophil Count 0.12 10^3/uL (0.0-0.7); Absolute Lymphocyte Count 2.38 10^3/uL (1.2-3.4); Absolute Monocyte Count 0.61 10^3/uL (0.1-0.8); Absolute Neutrophil Count 7.64 10^3/uL (1.2-6.7); Basophils % 0.5; Eosinophils % 1.1; HCT 41.8 % (36.0-46.0); HGB 13.2 g/dL (11.2-15.7); Immature Grans % 0.5; Lymphocytes % 21.9; MCH 26.8 pg (27.0-33.0); MCHC 31.6 % (32.0-36.0); MCV 85 fL (80-95); MPV 10.2 fL (8.0-11.0); Monocytes % 5.6; Neutrophils % 70.4; Platelet Count 303 10^3/uL (130-400); RBC 4.92 10^6/uL (3.93-5.22); RDW 14.2 % (11.7-14.6); WBC 10.85 10^3/uL (4.4-10.8)
[2021-12-03 09:03] LABS: ALT 29 U/L (14-59); AST 14 U/L (15-37); Albumin 2.9 g/dL (3.4-5.0); Alkaline Phosphatase 102 U/L (46-116); Anion Gap 7.2 mmol/L (3-11); BUN 12 mg/dL (7-18); Bilirubin, Total 0.5 mg/dL (0.2-1.0); CO2 28.8 mmol/L (21.0-32.0); CREATININE 0.7 mg/dL (0.55-1.02); Calcium 8.7 mg/dL (8.5-10.1); Calculated LDL 65 mg/dL (<100); Chloride 99 mmol/L (98-107); Cholesterol 121 mg/dL (<200); Folate 11.4 ng/mL (8.6-20.0); Glucose 113 mg/dL (74-106); HDL Cholesterol 41 mg/dL (40-60); Potassium 3.8 mmol/L (3.5-5.1); Sodium 135 mmol/L (136-145); Total Protein 8.1 g/dL (6.4-8.2); Triglyceride 75 mg/dL (<150); Vitamin B12 323 pg/mL (193-986)
[2021-12-03 23:21] LABS: Parathyroid Hormone,Intact 57 pg/mL (19-88)
[2021-12-04 05:35] LABS: Vitamin D 25 Total 16.5 ng/mL (30-100)
== END 2021-12-03 03:03 | disposition home or self-care (01) ==
LOC: LBO 03:03
PROVIDERS: Visit Provider Internal Medicine
DX: E66.01 Morbid (severe) obesity due to excess calories (principal); Z68.44 Body mass index [BMI] 60.0-69.9, adult
CPT/HCPCS: 36415; 80053; 80061; 82306; 82607; 82746; 83970; 84425; 84443; 85025

== ENCOUNTER 2022-01-08 02:55 | Outpatient (CLI) | payer SELFPAY ==
[2022-01-14 13:35] LABS: Thiamine (Vitamin B1), WB 103 nmol/L (70-180)
== END 2022-01-08 02:56 | disposition home or self-care (01) ==
LOC: LBO 02:56
PROVIDERS: Visit Provider Internal Medicine
DX: E66.01 Morbid (severe) obesity due to excess calories (principal)
CPT/HCPCS: 84425

== ENCOUNTER 2023-07-19 21:21 | Outpatient (REF) | payer OTHER, SELFPAY | END 2023-07-19 21:22 | disposition home or self-care (01) | LOC: LBN 21:21 | PROVIDERS: Visit Provider Nurse Practitioner Family | DX: N76.0 Acute vaginitis (principal); R35.0 Frequency of micturition | CPT/HCPCS: 87086; 87480; 87510; 87660 ==

== ENCOUNTER 2024-02-28 21:33 | Outpatient (REF) | payer OTHER, SELFPAY ==
[2024-02-28 16:30] LABS: HCT 47.7 % (36.0-46.0); HGB 15.1 g/dL (11.2-15.7); MCH 27.8 pg (27.0-33.0); MCHC 31.7 % (32.0-36.0); MCV 88 fL (80-95); MPV 11.8 fL (8.0-11.0); Platelet Count 316 10^3/uL (130-400); RBC 5.44 10^6/uL (3.93-5.22); RDW 13.9 % (11.7-14.6); RDW-SD 43.8 fL; WBC 8.98 10^3/uL (4.4-10.8)
[2024-02-28 17:02] LABS: ALT 37 U/L (14-59); AST 24 U/L (15-37); Albumin 3.3 g/dL (3.4-5.0); Alkaline Phosphatase 139 U/L (46-116); Anion Gap 12.1 mmol/L (3-11); BUN 8 mg/dL (7-18); Bilirubin, Total 0.66 mg/dL (0.2-1.0); CO2 27.9 mmol/L (21.0-32.0); CREATININE 0.7 mg/dL (0.55-1.02); Calcium 9.5 mg/dL (8.5-10.1); Calculated LDL 113 mg/dL (<100); Chloride 99 mmol/L (98-107); Cholesterol 193 mg/dL (<200); Estimated GFR 116.31 (mL/min/1.73m2); Glucose 337 mg/dL (74-106); HDL Cholesterol 47 mg/dL (40-60); Potassium 4.2 mmol/L (3.5-5.1); Sodium 139 mmol/L (136-145); Total Protein 8.2 g/dL (6.4-8.2); Triglyceride 166 mg/dL (<150)
[2024-02-28 17:46] LABS: Hemoglobin A1C > 13.0 % (<5.7)
== END 2024-02-28 21:34 | disposition home or self-care (01) ==
LOC: NCHCN 21:33
PROVIDERS: Visit Provider Physician Assistant
DX: I10 Essential (primary) hypertension (principal); R73.03 Prediabetes
CPT/HCPCS: 80053; 80061; 85027; 83036

== ENCOUNTER 2024-08-02 20:09 | Outpatient (REF) | payer OTHER, SELFPAY | END 2024-08-02 20:10 | disposition home or self-care (01) | LOC: LBN 20:09 | PROVIDERS: PCP Physician Assistant; Visit Provider Physician Assistant Medical | DX: L02.416 Cutaneous abscess of left lower limb (principal) | CPT/HCPCS: 87077; 87070; 87205 ==

== ENCOUNTER 2025-01-22 07:37 | Outpatient (CLI) | payer OTHER, SELFPAY ==
[2025-01-22 07:29] LABS: ALT 34 U/L (14-59); AST 17 U/L (15-37); Albumin 2.9 g/dL (3.4-5.0); Alkaline Phosphatase 154 U/L (46-116); Anion Gap 6.8 mmol/L (3-11); BUN 13 mg/dL (7-18); Bilirubin, Total 0.8 mg/dL (0.2-1.0); CO2 29.2 mmol/L (21.0-32.0); Calcium 8.9 mg/dL (8.5-10.1); Chloride 101 mmol/L (98-107); Estimated GFR 98.48 (mL/min/1.73m2); Glucose 168 mg/dL (74-106); Potassium 4.2 mmol/L (3.5-5.1); Sodium 137 mmol/L (136-145); Total Protein 8.1 g/dL (6.4-8.2)
[2025-01-22 07:39] LABS: Hemoglobin A1C 6.6 % (<5.7)
[2025-01-23 15:19] LABS: Calculated LDL 30 mg/dL (<100); Cholesterol 86 mg/dL (<200); HDL Cholesterol 33 mg/dL (>or=50); Triglyceride 119 mg/dL (<150)
== END 2025-01-22 07:38 | disposition home or self-care (01) ==
LOC: LBO 07:38
PROVIDERS: PCP Physician Assistant; Visit Provider Physician Assistant
DX: E11.9 Type 2 diabetes mellitus without complications (principal)
CPT/HCPCS: 36415; 80053; 80061; 83036

== ENCOUNTER 2025-01-26 11:51 | Outpatient (REF) | payer OTHER, SELFPAY ==
[2025-01-26 16:56] LABS: COMMENT (LAB VIEW ONLY) 211.55 mg/dL; Microalb ug/mg Crea 13.2 ug/mg Cr
== END 2025-01-26 11:52 | disposition home or self-care (01) ==
LOC: NCHCN 11:51
PROVIDERS: PCP Physician Assistant; Visit Provider Physician Assistant
DX: E11.9 Type 2 diabetes mellitus without complications (principal)
CPT/HCPCS: 82043; 82570

== ENCOUNTER 2025-02-19 21:34 | Emergency (ER) | payer OTHER, SELFPAY ==
[2025-02-19 21:36] VITALS: BP 145/85; PULSE 96; RESP 18; TEMP 36.6; O2SAT 93
--- NOTE | 2025-02-19 21:45 | DI.CT_ITS ---
Exam(s) CT ABDOMEN PELVIS W EXAM: CT ABDOMEN PELVIS W CLINICAL HISTORY: periumbilical and RLQ pain, vomiting TECHNIQUE: Imaging Protocol: Axial computed tomography images with coronal and sagittal reformatted images were created and reviewed. CONTRAST MATERIAL: Intravenous: Omnipaque 350 Contrast volume:100 mL Oral: No COMPARISON: CT CT ABDOMEN PELVIS W from 08/21/[address] ABDOMEN PELVIS W from 12/27/2020 FINDINGS: ABDOMEN: Lung Bases: No acute abnormality. Liver: Normal density. No measurable mass. Portal, Superior Mesenteric, and Splenic Veins: Unremarkable. Gallbladder and Biliary Tract: No radiodense calculus or dilation. Pancreas: Normal density, no abnormal calcifications or inflammatory process. Spleen: Normal. Adrenals: No masses seen. Kidneys: Normal size, contour and axis. No radiodense stones or obstructive uropathy. No masses seen. Abdominal Aorta: Abdominal portion non-dilated. Bowel: No obstruction or bowel wall thickening. There is no evidence of appendicitis. Peritoneal Cavity: No ascites, collection or mesenteric inflammatory response. No free air. Lymph Nodes: Within normal limits. Bones: Within normal limits for the patient's age. Soft Tissues: There is a small fat containing umbilical hernia. PELVIS: Bladder: Symmetric distention, no gross wall thickening. Reproductive Organs: There is an IUD which appears in good position. Lymph Nodes: Within normal limits. Bones: Within normal limits for the patient's age. IMPRESSION: 1. There is no evidence of appendicitis. 2. There is a small fat containing umbilical hernia. 3. No acute abdominal or pelvic process is present. 4. The preliminary [facility] report was reviewed. RADIATION DOSE DELIVERED: 2,303.43mGy.cm Total DLP DATA REPOSITORY: All CT scans at this facility are submitted to the National Radiology Data Registry (NRDR) Dose Index Registry (DIR) with the [employer] (A[employer]). RADIATION OPTIMIZATION: All CT scans at this facility use at least one of these dose optimization techniques: automated exposure control; mA and/or kV adjustment per patient size (includes targeted exams where dose is matched to clinical indication); or iterative reconstruction.
[2025-02-19 21:54] VITALS: BP 145/85; PULSE 96; RESP 18; TEMP 36.6; O2SAT 93
--- NOTE | 2025-02-19 22:05 | W.ED.GENAD ---
Discharge Plan Discharge Details Chief Complaint: Nausea/Vomit/Diar Primary Care Provider: Kal Tapia ED Provider: Citlali Puente Home Meds and New Rx's Prescriptions: No Action hydrochlorothiazide 25 mg Tablet 25 mg PO DAILY metformin 500 mg Tablet Extended Release 24 Hr 500 mg PO BID loratadine 10 mg Tablet 10 mg PO DAILY cholecalciferol (vitamin D3) [Vitamin D3] 125 mcg (5,000 unit) Tablet 125 mcg PO DAILY ergocalciferol (vitamin D2) 1,250 mcg (50,000 unit) capsule 1,250 mcg PO Q2W Patient Comments: TAKE 1 CAPSULE BY MOUTH 2 TIMES A WEEK HPI General Mode of arrival: ambulatory. Date/Time Provider Initiated Documentation: 02/19/25 21:43. Limitations to Documentation: no limitations. Information obtained by: patient, family and old records reviewed. HPI Narrative: This is a 34-year-old female patient without significant past medical history presenting for evaluation of nausea with vomiting and abdominal pain. She had a stomach flu about 8 days ago but had recovered, today began to have nonbloody emesis, has had 3 or 4 episodes. She developed abdominal discomfort, starting in the right lower quadrant and migrating towards the periumbilical region. She has no personal history of abdominal surgeries, nobody else in her home has been sick with similar symptoms, she denies fevers or chills, has not had an appetite, denies new vaginal discharge or bleeding, dysuria, hematuria, diarrhea, or bloody stool. Last stool was today but smaller than typical for her. She has not taken any medications at home for management of her symptoms. Related Data Home Medications ?Medication ?Instructions ?Recorded ?Confirmed cholecalciferol (vitamin D3) 125 125 mcg PO DAILY 08/21/20 02/19/25 mcg (5,000 unit) tablet (Vitamin D3) hydrochlorothiazide 25 mg tablet 25 mg PO DAILY 08/21/20 02/19/25 loratadine 10 mg tablet 10 mg PO DAILY 08/21/20 02/19/25 metformin 500 mg tablet,extended 500 mg PO BID 08/21/20 02/19/25 release 24 hr ergocalciferol (vitamin D2) 1,250 1,250 mcg PO Q2W 12/27/20 02/19/25 mcg (50,000 unit) capsule Allergies Allergy/AdvReac Type Severity Reaction Status Date / Time No Known Allergies Allergy Verified 02/19/25 21:39 General Stated Complaint: Nausea/Vomit/Diar SULLY: 3 Exam Narrative Exam Narrative: Gen: Awake and alert, in no apparent distress HEENT: Non-icteric sclera Neck: Supple Lungs: No apparent respiratory distress, normal respiratory effort. CV: Appears well perfused, heart with regular rate and rhythm Abdomen: Non-distended, soft, tender to palpation in the periumbilical region and right lower quadrant without rigidity, rebound, or guarding. No overlying skin changes MSK: Moves 4 extremities without apparent limitation in ROM Skin: Visualized skin without rashes, cyanosis. Neuro: Normal Gait, no obvious focal deficits or facial asymmetry. Speaks in full, clear sentences. Psych: Appropriate for situation. Course Vital Signs Vital signs: Vital Signs Temperature 36.6 C 02/19/25 21:36 Pulse 96 H 02/19/25 21:36 Respiratory Rate 18 02/19/25 21:36 Blood Pressure 145/85 H 02/19/25 21:36 Pulse Oximetry 93 02/19/25 21:36 Temperature 36.6 C 02/19/25 21:54 Pulse 96 H 02/19/25 21:54 Respiratory Rate 18 02/19/25 21:54 Blood Pressure 145/85 H 02/19/25 21:54 Pulse Oximetry 93 02/19/25 21:54 Oxygen Delivery Method Room Air 02/19/25 21:54 Oxygen Flow Rate 0 02/19/25 21:54 Pain Level 7 02/19/25 21:54 Medical Decision Making This is a 34-year-old female patient presenting for evaluation of vomiting with abdominal discomfort. My differential includes, but is not limited to, gastritis/PUD, gastroenteritis, pancreatitis, cholecystitis and gallbladder pathology, hepatitis, appendicitis, diverticulitis, small bowel obstruction. Considered urinary pathology including UTI, nephrolithiasis. Considered mesenteric ischemia, aortic pathology, though this is less concerning based on the patient's history and physical exam. Considered ectopic , PID/TOA, ovarian cyst, ovarian torsion, though the patient uses an IUD for prevention and does not have any vaginal symptoms. I will provide the patient with a liter of IV fluids, and Toradol and Zofran for initial management of pain. We will obtain labs to include CBC, CMP, magnesium, lipase, urinalysis, and test. -I reviewed the patient's laboratory studies, which show a leukocytosis of 16.3, no anemia or thrombocytopenia. Chemistry panel is without electrolyte derangement, evidence of kidney dysfunction or liver disease, magnesium is borderline low at 1.7. Lipase is slightly above the cutoff of the upper limit of normal at 100, but well below the 3 times the upper limit of normal that would be quite concerning for pancreatitis in the absence of epigastric pain. I signed out care of this patient to the oncoming provider prior to obtaining a urinalysis and prior to her CT scan being reviewed by radiology. Remained hemodynamically appropriate while under my care. Citlali Puente MD [facility] All Active Problems Cellulitis (Acute) Enteritis (Acute) Social History Smoking/Tobacco Use Status: Never Smoking risk assessment performed?: Yes Alcohol Intake: current Alcohol Intake frequency: holidays/special occasions only Drug use: Never Substance use type: does not use Do you feel safe at home: Yes Do you feel safe in your relationship?: Yes
[2025-02-19] MEDS: Lactated Ringers 1,000 ML 1000 ML IV (22:42)
[2025-02-19] MEDS: Ondansetron 4 MG/2 ML VIAL IVP (22:43)
[2025-02-19] MEDS: Ketorolac 15 MG/ML VIAL IVP (22:43)
[2025-02-19 22:46] LABS: Abs Immature Grans 0.07 10^3/uL (0.0-0.06); HCT 39.5 % (36.0-46.0); HGB 12.9 g/dL (11.2-15.7); Immature Grans % 0.4 %; MCH 27.0 pg (27.0-33.0); MCHC 32.7 % (32.0-36.0); MCV 83 fL (80-95); MPV 10.1 fL (8.0-11.0); Platelet Count 349 10^3/uL (130-400); RBC 4.78 10^6/uL (3.93-5.22); RDW 14.3 % (11.7-14.6); RDW-SD 42.8 fL; WBC 16.30 10^3/uL (4.4-10.8)
[2025-02-19] MEDS: Normal Saline Flush 10 ML SYR IVP (22:50)
[2025-02-19] MEDS: Omnipaque 350 MG/ML 100 ML BTL IJ (22:50)
[2025-02-19] MEDS: Normal Saline - Diluent 50 ML VIAL IJ (22:50)
[2025-02-19 23:02] LABS: ALT 48 U/L (14-59); AST 20 U/L (15-37); Albumin 2.9 g/dL (3.4-5.0); Alkaline Phosphatase 148 U/L (46-116); Anion Gap 6.7 mmol/L (3-11); BUN 9 mg/dL (7-18); Bilirubin, Total 0.6 mg/dL (0.2-1.0); CO2 29.3 mmol/L (21.0-32.0); Calcium 8.9 mg/dL (8.5-10.1); Chloride 100 mmol/L (98-107); Estimated GFR 115.59 (mL/min/1.73m2); Glucose 124 mg/dL (74-106); Magnesium 1.7 mg/dL (1.8-2.4); Potassium 3.8 mmol/L (3.5-5.1); Sodium 136 mmol/L (136-145); Total Protein 8.4 g/dL (6.4-8.2)
[2025-02-19 23:09] LABS: Lipase 100 U/L (<78)
--- NOTE | 2025-02-20 00:28 | DI.VRAD_ITS ---
PROCEDURE INFORMATION: Exam: CT Abdomen And Pelvis With Contrast Exam date and time: 02/19/2025 10:54 PM Age: 34 years old Clinical indication: Vomiting; Abdominal pain and other: Rlq pain; Periumbilical; Additional info: Periumbilical and rlq pain, vomiting TECHNIQUE: Imaging protocol: Computed tomography of the abdomen and pelvis with contrast. Contrast material: OMNI 350; Contrast volume: 100 ml; Contrast route: INTRAVENOUS (IV); COMPARISON: CT ABDOMEN PELVIS W 12/27/2020 8:51 PM FINDINGS: Liver: Normal. No mass. Gallbladder and biliary ducts: Normal. No calcified stones. No ductal dilation. Pancreas: Normal. No ductal dilation. Spleen: Normal. No splenomegaly. Adrenal glands: Normal. No mass. Kidneys and ureters: Normal. No hydronephrosis. Stomach and bowel: Unremarkable. No obstruction. No mucosal thickening. Appendix: The appendix is visualized and appears normal. Intraperitoneal space: Unremarkable. No free air. No significant fluid collection. Vasculature: Unremarkable. No abdominal aortic aneurysm. Lymph nodes: Unremarkable. No enlarged lymph nodes. Urinary bladder: Unremarkable as visualized. Reproductive: Intrauterine device in place. Uterus appears unremarkable. No adnexal abnormality. Bones/joints: [id number] degenerative disc changes throughout the lower spine. No vertebral body compression. No acute fracture. Soft tissues: Unremarkable. IMPRESSION: No acute abnormality Dictated and Authenticated by: Mahendra Richards MD. Orderin St. Fidel Godwin MD
[2025-02-20 01:08] LABS: Glucose Negative (Negative)
[2025-02-20 01:42] VITALS: PULSE 78; RESP 16; O2SAT 97
== END 2025-02-20 01:43 | disposition home or self-care (01) ==
PROVIDERS: Emergency Medicine; Emergency Provider Emergency Medicine; PCP Physician Assistant
DX: R11.2 Nausea with vomiting, unspecified; R10.31 Right lower quadrant pain; R10.33 Periumbilical pain
CPT/HCPCS: 36415; 80053; 81025; 83690; 96361; 96374; 96375; 99285; 74177; 81003; 83735; 85025; 99284; J1885; J2405; J3490